=== PATIENT | female | born 1970 | race Two or more races ===

== ENCOUNTER 2021-10-08 08:43 | Inpatient (IN) | payer MEDICARE, OTHER ==
[~2021-10-08] VITALS: Ht 167.6 cm; Wt 74.3 kg
[2021-10-08 09:47] LABS: Basophils # (auto) 0 10 ^3/uL (0-0.2); Basophils % (auto) 0.3 % (0.0-2.0); Eosinophils # (auto) 0.1 10 ^3/uL (0-0.8); Eosinophils % (auto) 1.5 % (0.0-7.0); Hematocrit 23.6 % (36.0-46.0); Hemoglobin 7.5 g/dL (12.2-16.2); Lymphocytes # (auto) 0.4 10 ^3/uL (0.4-5.4); Lymphocytes % (auto) 4.3 % (10.0-50.0); Mean Corpuscular Hemoglobin 27.4 pg (28.0-32.0); Mean Corpuscular Hgb Conc. 31.9 g/dL (32.0-36.0); Mean Corpuscular Volume 85.9 fL (80.0-100.0); Monocytes # (auto) 0.4 10 ^3/uL (0-1.3); Monocytes % (auto) 4.3 % (0.0-12.0); Neutrophils # (auto) 7.7 10 ^3/uL (1.6-8.6); Neutrophils % (auto) 89.6 % (37.0-80.0); Red Blood Cells 2.75 10^6/uL (4.0-5.20); White Blood Cell 8.6 10^3/uL (4.4-10.8)
[2021-10-08 09:51] LABS: Albumin 1.9 g/dL (3.4-5.0); Calcium 7.5 mg/dL (8.5-10.1); Potassium 3.6 mmol/L (3.5-5.1)
[2021-10-08 09:57] LABS: BUN/Creatinine Ratio 14.8; Bilirubin, Total 0.2 mg/dL (0.2-1.0); Total Protein 5.5 g/dL (6.4-8.2)
[2021-10-08] MEDS ORDERED: SODIUM CHLORIDE 0.9% 1,000 ML IV ONE ×2 (10:00)
[2021-10-08] MEDS ORDERED: ALBUMIN 25% 100 ML IV ONE (12:30)
[2021-10-08] MEDS ORDERED: NITROGLYCERIN 0.4 MG SL TAB SL PRN ×2 (12:30→15:15)
[2021-10-08] MEDS ORDERED: ENOXAPARIN SOD 80 MG/0.8ML SYRINGE SC ONE (12:30)
[2021-10-08] MEDS ORDERED: FUROSEMIDE 40 MG/4 ML VIAL IV ONE (12:30)
[2021-10-08] MEDS ORDERED: MORPHINE SULFATE INJECTION 2 MG/ML SYRG IV PRN ×2 (12:30→15:15)
[2021-10-08 14:06] LABS: Partial Thromboplastin Time 28.2 sec (23.6-33.0)
[2021-10-08] MEDS ORDERED: levoFLOXacin 250MG 50 ML IV SCH (14:45)
[2021-10-08] MEDS ORDERED: levoFLOXacin 250MG 50 ML IV ONE (14:45)
[2021-10-08] MEDS ORDERED: IPRATROPIUM BROM 0.5 MG/2.5ML INH SOL NEB ONE (15:00)
[2021-10-08] MEDS ORDERED: METOPROLOL SUCCINATE XL 50 MG TAB PO ONE (15:00)
[2021-10-08] MEDS ORDERED: PANTOPRAZOLE 40 MG/10 ML VIAL INJ IV ONE (15:00)
[2021-10-08] MEDS ORDERED: ALUM & MAG HYDROX-SIMETH LIQ(MAALOX) 30 ML PO PRN (15:15)
[2021-10-08] MEDS ORDERED: METOCLOPRAMIDE HCL 5MG/ml INJ 2ml VIAL IV PRN (15:15)
[2021-10-08] MEDS ORDERED: HYDROcodone-ACET 5/325MG TAB PO PRN (15:15)
[2021-10-08] MEDS ORDERED: TEMAZEPAM 15 MG CAP PO PRN (15:15)
[2021-10-08] MEDS ORDERED: ACETAMINOPHEN 325 MG TAB PO PRN (15:15)
[2021-10-08] MEDS ORDERED: DOCUSATE SOD 100 MG CAP PO PRN (15:15)
[2021-10-08 15:36] LABS: % Iron Saturation 6.4 % (15-50)
[2021-10-08 15:41] LABS: Magnesium 2.5 mg/dL (1.6-2.6); Phosphorus 7.9 mg/dL (2.5-4.90)
[2021-10-08] MEDS ORDERED: NALOXONE HCL 1MG/ML 2ML SYRINGE ONE (16:10)
[2021-10-08] MEDS ORDERED: NOREPINEPHRINE 8 MG/250ML KIT 250 ML IV ONE (16:12)
[2021-10-08] MEDS ORDERED: ETOMIDATE (2MG/ML) 20ML VIAL IV ONE ×2 (16:12→17:00)
[2021-10-08] MEDS ORDERED: SUCCINYLCHOLINE CHLORIDE 20 MG/ML 10ML VIAL IV ONE ×2 (16:12→17:00)
[2021-10-08] MEDS ORDERED: MIDAZOLAM DRIP 50 mg/50mL 50 ML IV ONE (16:16)
[2021-10-08] MEDS: MIDAZOLAM DRIP 50 mg/50mL 50 ML IV SCH ×3 (16:30→17:26)
[2021-10-08] MEDS ORDERED: NALOXONE HCL 1MG/ML 2ML SYRINGE IV ONE (17:00)
[2021-10-08] MEDS ORDERED: PROPOFOL 100 ML IV ONE (17:09)
[2021-10-08] MEDS ORDERED: PROPOFOL 10 MG/ML 20 ML IV ONE (17:15)
[2021-10-08] MEDS: PROPOFOL 100 ML IV SCH ×2 (17:23→17:24)
[2021-10-08] MEDS: ACCU-CHEK COMFORT CURVE STRIP VI SCH ×2 (17:27→22:41)
[2021-10-08 17:30] LABS: Cholesterol 97 mg/dL (< 200)
[2021-10-08 17:33] LABS: HDL Cholesterol 43 mg/dL (40-59); LDL Cholesterol 33 mg/dL (< 100); Triglycerides 146 mg/dL (< 150)
[2021-10-08] MEDS: metroNIDAZOLE 500MG/100ML 100 ML IV SCH ×2 (17:37→22:44)
[2021-10-08] MEDS: InsuLIN REG 1unit/0.01ml Soln (100units/ml) SC SCH ×2 (18:00→22:00)
[2021-10-08] MEDS ORDERED: fentaNYL Drip 2500mCg/250mlNS 250 ML IV ONE (18:00)
[2021-10-08] MEDS: ALBUMIN 25% 100 ML IV SCH ×2 (18:00→23:00)
[2021-10-08 18:15] VITALS: BP 151/69
[2021-10-08] MEDS: fentaNYL Drip 2500mCg/250mlNS 250 ML IV SCH (18:26)
[2021-10-08] MEDS ORDERED: DOPamine 1600MCG/ML D5W 250 ML IV ONE (18:29)
[2021-10-08] MEDS: DOPamine 1600MCG/ML D5W 250 ML IV SCH (18:33)
[2021-10-08] MEDS: IPRATROPIUM BROM 0.5 MG/2.5ML INH SOL NEB SCH ×2 (19:22→22:00)
[2021-10-08] MEDS: BUMETANIDE 2.5mg/10ml (0.25 mg/ml) INJ IV SCH (21:53)
[2021-10-08 22:18] VITALS: BP 153/73
[2021-10-08] MEDS: hydrALAZINE HCL 10 MG TAB PO SCH (22:56)
[2021-10-08] MEDS: ATORVASTATIN 20 MG TAB PO SCH (22:58)
[2021-10-08] MEDS: ISOSORBIDE MONONITRATE 20 MG TAB PO SCH (23:00)
[2021-10-09] VITALS (12 sets, daily range): BP systolic 125–165; BP diastolic 67–84
[2021-10-09] MEDS: IPRATROPIUM BROM 0.5 MG/2.5ML INH SOL NEB SCH ×7 (02:24→21:48)
[2021-10-09] MEDS: BUMETANIDE 2.5mg/10ml (0.25 mg/ml) INJ IV SCH (06:00)
[2021-10-09] MEDS ORDERED: HEPARIN SODIUM (PORCINE) 5000 UNITS/ML 1ML VIAL IV ONE (06:00)
[2021-10-09] MEDS: metroNIDAZOLE 500MG/100ML 100 ML IV SCH ×3 (06:00→16:00)
[2021-10-09] MEDS: hydrALAZINE HCL 10 MG TAB PO SCH ×3 (06:00→22:00)
[2021-10-09] MEDS: InsuLIN REG 1unit/0.01ml Soln (100units/ml) SC SCH ×4 (07:00→22:00)
[2021-10-09] MEDS: ACCU-CHEK COMFORT CURVE STRIP VI SCH ×4 (07:00→22:21)
[2021-10-09] MEDS: ALBUMIN 25% 100 ML IV SCH (07:00)
[2021-10-09 07:04] LABS: Basophils # (auto) 0 10 ^3/uL (0-0.2); Eosinophils # (auto) 0.2 10 ^3/uL (0-0.8); Hematocrit 19.5 % (36.0-46.0); Lymphocytes # (auto) 1.2 10 ^3/uL (0.4-5.4); Mean Corpuscular Hemoglobin 27.5 pg (28.0-32.0); Monocytes # (auto) 0.5 10 ^3/uL (0-1.3)
[2021-10-09 07:06] LABS: Basophils % (auto) 0.4 % (0.0-2.0); Lymphocytes % (auto) 16.3 % (10.0-50.0); Mean Corpuscular Hgb Conc. 32.8 g/dL (32.0-36.0); Mean Corpuscular Volume 83.7 fL (80.0-100.0); Monocytes % (auto) 6.5 % (0.0-12.0); Neutrophils # (auto) 5.5 10 ^3/uL (1.6-8.6); Neutrophils % (auto) 73.8 % (37.0-80.0); Red Blood Cells 2.33 10^6/uL (4.0-5.20); Red Cell Distribution Width 16.4 % (11.8-14.3); White Blood Cell 7.5 10^3/uL (4.4-10.8)
[2021-10-09 07:15] LABS: Albumin 2.4 g/dL (3.4-5.0); Calcium 7.4 mg/dL (8.5-10.1)
[2021-10-09 07:16] LABS: Hemoglobin 6.4 g/dL (12.2-16.2)
[2021-10-09 07:21] LABS: Bilirubin, Total 0.3 mg/dL (0.2-1.0); Total Protein 5.3 g/dL (6.4-8.2)
[2021-10-09 07:46] LABS: INR 1.04 (0.9-1.15); Partial Thromboplastin Time 32.8 sec (23.6-33.0)
[2021-10-09 07:49] LABS: Potassium 2.7 mmol/L (3.5-5.1)
[2021-10-09] MEDS ORDERED: SUCRALFATE 1 GM/10 ML ORAL SUSP PO ONE (09:45)
[2021-10-09] MEDS ORDERED: ACETAMINOPHEN 325 MG TAB PO ONE (09:45)
[2021-10-09] MEDS ORDERED: PANTOPRAZOLE 40 MG/10 ML VIAL INJ IV ONE (09:45)
[2021-10-09] MEDS ORDERED: ENOXAPARIN SOD 30 MG/0.3 ML SYRINGE SC SCH (10:00)
[2021-10-09] MEDS: ISOSORBIDE MONONITRATE 20 MG TAB PO SCH ×2 (10:00→22:00)
[2021-10-09] MEDS: HEPARIN DRIP/D5W 100UNITS/ML 250 ML IV SCH (10:00)
[2021-10-09] MEDS ORDERED: PANTOPRAZOLE 40 MG/10 ML VIAL INJ IV SCH (10:00)
[2021-10-09] MEDS: METOPROLOL SUCCINATE XL 50 MG TAB PO SCH (10:30)
[2021-10-09] MEDS ORDERED: IPRATROPIUM BROM 0.5 MG/2.5ML INH SOL ONE (11:09)
[2021-10-09 11:20] LABS: INR 1.05 (0.9-1.15)
[2021-10-09] MEDS: SUCRALFATE 1 GM/10 ML ORAL SUSP PO SCH ×3 (11:30→22:36)
[2021-10-09] MEDS ORDERED: CALCITRIOL 1 MCG/ML AMPULE IV ONE (12:45)
[2021-10-09] MEDS ORDERED: POTASSIUM CHLORIDE 80 MEQ, LIDOCAINE 1% (LOCAL ANESTH.) 6 ML in SODIUM CHL 0.9% 500 ML IV ONE (12:45)
[2021-10-09] MEDS: D5W/SOD CHLO 0.9% 1,000 ML IV SCH (13:00)
[2021-10-09 13:08] LABS: Folate (Folic Acid) 3.42 ng/mL (5.38-24)
[2021-10-09] MEDS ORDERED: POTASSIUM CHLORIDE 40 MEQ, LIDOCAINE 1% (LOCAL ANESTH.) 4 ML in SODIUM CHL 0.9% 250 ML IV ONE (16:45)
[2021-10-09] MEDS: fentaNYL Drip 2500mCg/250mlNS 250 ML IV SCH (18:07)
[2021-10-09] MEDS: DOPamine 1600MCG/ML D5W 250 ML IV SCH (18:30)
[2021-10-09 18:53] LABS: BUN/Creatinine Ratio 14.6; Calcium 7.3 mg/dL (8.5-10.1); Potassium 3.2 mmol/L (3.5-5.1)
[2021-10-09] MEDS: hydrALAZINE HCL 20 MG/ML VL IV PRN (19:14)
[2021-10-09] MEDS: ATORVASTATIN 20 MG TAB PO SCH (22:36)
[2021-10-09] MEDS: PANTOPRAZOLE 40 MG/10 ML VIAL INJ IV SCH (22:37)
[2021-10-09 23:37] LABS: Basophils # (auto) 0 10 ^3/uL (0-0.2); Hemoglobin 7.8 g/dL (12.2-16.2); Lymphocytes # (auto) 0.9 10 ^3/uL (0.4-5.4); Monocytes # (auto) 0.5 10 ^3/uL (0-1.3); Neutrophils # (auto) 5.3 10 ^3/uL (1.6-8.6)
[2021-10-09 23:39] LABS: Basophils % (auto) 0.7 % (0.0-2.0); Eosinophils # (auto) 0.2 10 ^3/uL (0-0.8); Eosinophils % (auto) 3.1 % (0.0-7.0); Mean Corpuscular Hemoglobin 27.9 pg (28.0-32.0); Mean Corpuscular Hgb Conc. 32.5 g/dL (32.0-36.0); Monocytes % (auto) 7.3 % (0.0-12.0); Neutrophils % (auto) 75.9 % (37.0-80.0); Red Blood Cells 2.79 10^6/uL (4.0-5.20); Red Cell Distribution Width 16.1 % (11.8-14.3)
[2021-10-10] MEDS: DOPamine 1600MCG/ML D5W 250 ML IV SCH ×2 (00:07→21:24)
[2021-10-10 01:41] VITALS: BP 96/52
[2021-10-10] MEDS: MIDAZOLAM DRIP 50 mg/50mL 50 ML IV SCH ×2 (01:45→21:35)
[2021-10-10] MEDS: IPRATROPIUM BROM 0.5 MG/2.5ML INH SOL NEB SCH ×5 (01:50→22:00)
[2021-10-10 04:35] LABS: Potassium 4.6 mmol/L (3.5-5.1)
[2021-10-10 04:49] LABS: Albumin 2.8 g/dL (3.4-5.0); BUN/Creatinine Ratio 15.9; Bilirubin, Total 0.9 mg/dL (0.2-1.0); Calcium 7.6 mg/dL (8.5-10.1); Magnesium 3.4 mg/dL (1.6-2.6); Phosphorus 6.6 mg/dL (2.5-4.90); Total Protein 6.1 g/dL (6.4-8.2)
[2021-10-10] MEDS: hydrALAZINE HCL 10 MG TAB PO SCH ×3 (06:00→22:23)
[2021-10-10] MEDS: metroNIDAZOLE 500MG/100ML 100 ML IV SCH ×3 (06:08→22:23)
[2021-10-10 06:38] VITALS: BP 138/76
[2021-10-10] MEDS ORDERED: methylPREDNISolone SOD SUCC 125 MG/2 ML VL IV ONE (06:45)
[2021-10-10] MEDS: InsuLIN REG 1unit/0.01ml Soln (100units/ml) SC SCH ×4 (07:00→22:24)
[2021-10-10] MEDS: SUCRALFATE 1 GM/10 ML ORAL SUSP PO SCH ×5 (08:00→22:40)
[2021-10-10] MEDS: ACCU-CHEK COMFORT CURVE STRIP VI SCH ×4 (08:30→22:24)
[2021-10-10 08:38] LABS: Basophils # (auto) 0 10 ^3/uL (0-0.2); Basophils % (auto) 0.4 % (0.0-2.0); Eosinophils # (auto) 0.3 10 ^3/uL (0-0.8); Eosinophils % (auto) 3.7 % (0.0-7.0); Hematocrit 29.8 % (36.0-46.0); Hemoglobin 9.7 g/dL (12.2-16.2); Lymphocytes # (auto) 0.8 10 ^3/uL (0.4-5.4); Mean Corpuscular Hemoglobin 27.8 pg (28.0-32.0); Mean Corpuscular Hgb Conc. 32.7 g/dL (32.0-36.0); Mean Corpuscular Volume 84.9 fL (80.0-100.0); Monocytes # (auto) 0.6 10 ^3/uL (0-1.3); Monocytes % (auto) 6.9 % (0.0-12.0); Red Blood Cells 3.51 10^6/uL (4.0-5.20); Red Cell Distribution Width 15.8 % (11.8-14.3); White Blood Cell 8.7 10^3/uL (4.4-10.8)
[2021-10-10] MEDS: DEXTROSE (50%) 50ML SYRG IV PRN ×2 (08:42→08:45)
[2021-10-10] MEDS: HEPARIN DRIP/D5W 100UNITS/ML 250 ML IV SCH (09:00)
[2021-10-10 09:21] LABS: INR 1.1 (0.9-1.15); Partial Thromboplastin Time 32.5 sec (23.6-33.0)
[2021-10-10] MEDS: METOPROLOL SUCCINATE XL 50 MG TAB PO SCH (10:00)
[2021-10-10] MEDS: ISOSORBIDE MONONITRATE 20 MG TAB PO SCH ×2 (10:00→22:23)
[2021-10-10] MEDS: PANTOPRAZOLE 40 MG/10 ML VIAL INJ IV SCH ×2 (10:00→22:23)
[2021-10-10] MEDS: D5W/SOD CHLO 0.9% 1,000 ML IV SCH ×2 (10:05→22:35)
[2021-10-10 10:24] VITALS: BP 147/78
[2021-10-10] MEDS ORDERED: FUROSEMIDE 100 MG/10ML VIAL IV ONE (13:00)
[2021-10-10] MEDS ORDERED: BUMETANIDE 2.5mg/10ml (0.25 mg/ml) INJ IV ONE (15:15)
[2021-10-10] MEDS ORDERED: FOLIC ACID 1 MG in D5W 5% 50 ML INJ ONE (15:15)
[2021-10-10 15:18] VITALS: BP 151/82
[2021-10-10] MEDS ORDERED: levoFLOXacin 250MG 50 ML IV SCH (15:30)
[2021-10-10] MEDS ORDERED: FOLIC ACID 1 MG TAB PO ONE (16:45)
[2021-10-10] MEDS: fentaNYL Drip 2500mCg/250mlNS 250 ML IV SCH (18:30)
[2021-10-10] MEDS: PROPOFOL 100 ML IV SCH (19:10)
[2021-10-10 19:21] VITALS: BP 128/62
[2021-10-10] MEDS: BUMETANIDE INJECTION 12.5 MG in GIVE UN-DILUTED 0 ML IV SCH (21:34)
[2021-10-10 22:00] VITALS: BP 110/59
[2021-10-10] MEDS: ATORVASTATIN 20 MG TAB PO SCH ×2 (22:23→22:40)
[2021-10-11] MEDS: fentaNYL Drip 2500mCg/250mlNS 250 ML IV SCH (00:50)
[2021-10-11] MEDS: MIDAZOLAM DRIP 50 mg/50mL 50 ML IV SCH ×2 (01:16→06:00)
[2021-10-11 02:11] VITALS: BP 105/53
[2021-10-11] MEDS: IPRATROPIUM BROM 0.5 MG/2.5ML INH SOL NEB SCH ×4 (02:11→14:00)
[2021-10-11 04:14] LABS: Basophils # (auto) 0 10 ^3/uL (0-0.2); Basophils % (auto) 0.1 % (0.0-2.0); Eosinophils # (auto) 0 10 ^3/uL (0-0.8); Hematocrit 31.2 % (36.0-46.0); Lymphocytes # (auto) 0.2 10 ^3/uL (0.4-5.4); Lymphocytes % (auto) 4.3 % (10.0-50.0); Mean Corpuscular Hemoglobin 27.4 pg (28.0-32.0); Mean Corpuscular Hgb Conc. 32.1 g/dL (32.0-36.0); Mean Corpuscular Volume 85.3 fL (80.0-100.0); Monocytes # (auto) 0 10 ^3/uL (0-1.3); Monocytes % (auto) 0.8 % (0.0-12.0); Neutrophils # (auto) 5.5 10 ^3/uL (1.6-8.6); Neutrophils % (auto) 94.8 % (37.0-80.0); Red Blood Cells 3.65 10^6/uL (4.0-5.20); Red Cell Distribution Width 16.7 % (11.8-14.3); White Blood Cell 5.8 10^3/uL (4.4-10.8)
[2021-10-11 04:35] LABS: Urine Bacteria MANY /hpf (None Seen); Urine Blood TRACE /uL (Negative); Urine Hyaline Cast MOD /lpf (0 - 2); Urine Specific Gravity 1.009 (1.001-1.035); Urine WBC 48 /hpf (0 - 5); Urine WBC Clumps PRESENT /hpf (None Seen)
[2021-10-11 04:42] LABS: Protein, Urine 102.6 mg/dL (0.0-11.9)
[2021-10-11 04:47] LABS: INR 1.19 (0.9-1.15); Partial Thromboplastin Time 34.3 sec (23.6-33.0)
[2021-10-11 05:05] LABS: Albumin 2.2 g/dL (3.4-5.0); Calcium 7.5 mg/dL (8.5-10.1); Magnesium 2.9 mg/dL (1.6-2.6); Potassium 3.8 mmol/L (3.5-5.1)
[2021-10-11 05:17] LABS: BUN/Creatinine Ratio 14.9; Bilirubin, Total 0.5 mg/dL (0.2-1.0); Phosphorus 7.6 mg/dL (2.5-4.90)
[2021-10-11] MEDS ORDERED: BUMETANIDE 2.5mg/10ml (0.25 mg/ml) INJ IV SCH (06:00)
[2021-10-11] MEDS: hydrALAZINE HCL 10 MG TAB PO SCH ×3 (06:00→22:46)
[2021-10-11] MEDS: metroNIDAZOLE 500MG/100ML 100 ML IV SCH ×3 (06:14→22:45)
[2021-10-11 06:50] VITALS: BP 121/66
[2021-10-11] MEDS: ACCU-CHEK COMFORT CURVE STRIP VI SCH ×4 (07:07→22:10)
[2021-10-11] MEDS: SUCRALFATE 1 GM/10 ML ORAL SUSP PO SCH ×4 (07:07→22:46)
[2021-10-11] MEDS: InsuLIN REG 1unit/0.01ml Soln (100units/ml) SC SCH ×4 (07:24→22:00)
[2021-10-11] MEDS: CHOLECALCIFEROL (VITD3) 2,000 UNIT CAP/TAB PO SCH (10:00)
[2021-10-11] MEDS: PANTOPRAZOLE 40 MG/10 ML VIAL INJ IV SCH ×2 (10:00→22:45)
[2021-10-11] MEDS: CYANOCOBALAMIN 500 MCG TAB PO SCH (10:00)
[2021-10-11] MEDS: ISOSORBIDE MONONITRATE 20 MG TAB PO SCH ×2 (10:00→22:00)
[2021-10-11] MEDS: METOPROLOL SUCCINATE XL 50 MG TAB PO SCH (10:00)
[2021-10-11] MEDS: FOLIC ACID 1 MG TAB PO SCH (10:00)
[2021-10-11] MEDS: CALCITRIOL 1 MCG/ML AMPULE IV SCH (10:00)
[2021-10-11 10:50] VITALS: BP 129/66
[2021-10-11 15:50] VITALS: BP 151/74
[2021-10-11] MEDS: PROPOFOL 100 ML IV SCH (17:15)
[2021-10-11 18:29] VITALS: BP 152/72
[2021-10-11 21:53] VITALS: BP 139/71
[2021-10-11] MEDS: ATORVASTATIN 20 MG TAB PO SCH (22:47)
[2021-10-12] MEDS: D5W/SOD CHLO 0.9% 1,000 ML IV SCH ×3 (00:13→13:30)
[2021-10-12] MEDS: IPRATROPIUM BROM 0.5 MG/2.5ML INH SOL NEB SCH ×8 (00:54→22:59)
[2021-10-12 01:54] VITALS: BP 154/79
[2021-10-12 05:15] VITALS: BP 161/82
[2021-10-12 05:51] LABS: Basophils # (auto) 0 10 ^3/uL (0-0.2); Basophils % (auto) 0.1 % (0.0-2.0); Eosinophils # (auto) 0 10 ^3/uL (0-0.8); Hematocrit 31.3 % (36.0-46.0); Hemoglobin 10.2 g/dL (12.2-16.2); Lymphocytes # (auto) 0.5 10 ^3/uL (0.4-5.4); Lymphocytes % (auto) 5.2 % (10.0-50.0); Mean Corpuscular Hemoglobin 27.7 pg (28.0-32.0); Mean Corpuscular Hgb Conc. 32.6 g/dL (32.0-36.0); Mean Corpuscular Volume 84.9 fL (80.0-100.0); Monocytes # (auto) 0.3 10 ^3/uL (0-1.3); Monocytes % (auto) 3.3 % (0.0-12.0); Neutrophils # (auto) 8.3 10 ^3/uL (1.6-8.6); Neutrophils % (auto) 91.4 % (37.0-80.0); Red Blood Cells 3.69 10^6/uL (4.0-5.20); White Blood Cell 9.1 10^3/uL (4.4-10.8)
[2021-10-12 06:01] LABS: Albumin 2.3 g/dL (3.4-5.0); Calcium 7.6 mg/dL (8.5-10.1); INR 1.16 (0.9-1.15); Magnesium 3.2 mg/dL (1.6-2.6); Partial Thromboplastin Time 30.8 sec (23.6-33.0); Potassium 4.1 mmol/L (3.5-5.1)
[2021-10-12 06:04] LABS: BUN/Creatinine Ratio 16.4; Bilirubin, Total 0.5 mg/dL (0.2-1.0); Phosphorus 7.4 mg/dL (2.5-4.90); Total Protein 6.1 g/dL (6.4-8.2)
[2021-10-12] MEDS: metroNIDAZOLE 500MG/100ML 100 ML IV SCH (06:11)
[2021-10-12] MEDS: ACCU-CHEK COMFORT CURVE STRIP VI SCH ×4 (07:00→23:05)
[2021-10-12] MEDS: InsuLIN REG 1unit/0.01ml Soln (100units/ml) SC SCH ×4 (07:05→23:06)
[2021-10-12] MEDS: hydrALAZINE HCL 10 MG TAB PO SCH ×3 (07:12→23:04)
[2021-10-12] MEDS: SUCRALFATE 1 GM/10 ML ORAL SUSP PO SCH ×4 (07:12→23:04)
[2021-10-12] MEDS: BUMETANIDE INJECTION 12.5 MG in GIVE UN-DILUTED 0 ML IV SCH (08:24)
[2021-10-12 08:50] VITALS: BP 156/83
[2021-10-12] MEDS: METOPROLOL SUCCINATE XL 50 MG TAB PO SCH (10:00)
[2021-10-12] MEDS: ISOSORBIDE MONONITRATE 20 MG TAB PO SCH (10:00)
[2021-10-12] MEDS: FOLIC ACID 1 MG TAB PO SCH (10:17)
[2021-10-12] MEDS: PANTOPRAZOLE 40 MG/10 ML VIAL INJ IV SCH ×2 (10:17→23:03)
[2021-10-12] MEDS: CHOLECALCIFEROL (VITD3) 2,000 UNIT CAP/TAB PO SCH (10:17)
[2021-10-12] MEDS: CYANOCOBALAMIN 500 MCG TAB PO SCH (10:17)
[2021-10-12] MEDS ORDERED: cefTRIAXone 1GM/50ML D5W 50 ML IV ONE (12:15)
[2021-10-12] MEDS: hydrALAZINE HCL 20 MG/ML VL IV PRN (12:23)
[2021-10-12 13:15] VITALS: BP 128/70
[2021-10-12] MEDS: ERGOCALCIFEROL 50,000 UNIT(1.25MG) CAP PO SCH (14:06)
[2021-10-12] MEDS: PROPOFOL 100 ML IV SCH (17:15)
[2021-10-12] MEDS: MIDAZOLAM DRIP 50 mg/50mL 50 ML IV SCH (17:38)
[2021-10-12 17:55] VITALS: BP 149/82
[2021-10-12] MEDS: FUROSEMIDE 20 MG/2 ML VIAL IV SCH (18:13)
[2021-10-12] MEDS: DOPamine 1600MCG/ML D5W 250 ML IV SCH (18:54)
[2021-10-12] MEDS: fentaNYL Drip 2500mCg/250mlNS 250 ML IV SCH (18:58)
[2021-10-12 22:10] VITALS: BP 141/84
[2021-10-12] MEDS: ATORVASTATIN 20 MG TAB PO SCH (23:05)
[2021-10-12] MEDS: ISOSORBIDE DINITRATE 10 MG TAB PO SCH (23:05)
[2021-10-13] MEDS: IPRATROPIUM BROM 0.5 MG/2.5ML INH SOL NEB SCH ×6 (02:13→18:53)
[2021-10-13 02:15] VITALS: BP 144/83
[2021-10-13 06:00] VITALS: BP 128/79
[2021-10-13] MEDS: FUROSEMIDE 20 MG/2 ML VIAL IV SCH ×2 (06:18→18:00)
[2021-10-13] MEDS: hydrALAZINE HCL 10 MG TAB PO SCH ×3 (06:19→22:54)
[2021-10-13] MEDS: ACCU-CHEK COMFORT CURVE STRIP VI SCH ×4 (06:53→22:21)
[2021-10-13] MEDS: SUCRALFATE 1 GM/10 ML ORAL SUSP PO SCH ×4 (06:53→22:54)
[2021-10-13] MEDS: InsuLIN REG 1unit/0.01ml Soln (100units/ml) SC SCH ×5 (06:55→22:21)
[2021-10-13 07:13] LABS: Basophils # (auto) 0.1 10 ^3/uL (0-0.2); Basophils % (auto) 0.7 % (0.0-2.0); Eosinophils # (auto) 0.1 10 ^3/uL (0-0.8); Eosinophils % (auto) 1.5 % (0.0-7.0); Hematocrit 32.3 % (36.0-46.0); Hemoglobin 10.6 g/dL (12.2-16.2); Lymphocytes # (auto) 0.9 10 ^3/uL (0.4-5.4); Lymphocytes % (auto) 10.4 % (10.0-50.0); Mean Corpuscular Hemoglobin 27.7 pg (28.0-32.0); Mean Corpuscular Hgb Conc. 32.8 g/dL (32.0-36.0); Mean Corpuscular Volume 84.5 fL (80.0-100.0); Monocytes # (auto) 0.4 10 ^3/uL (0-1.3); Monocytes % (auto) 4.9 % (0.0-12.0); Neutrophils # (auto) 7.5 10 ^3/uL (1.6-8.6); Neutrophils % (auto) 82.5 % (37.0-80.0); Red Blood Cells 3.82 10^6/uL (4.0-5.20); Red Cell Distribution Width 15.9 % (11.8-14.3)
[2021-10-13 07:43] LABS: BUN/Creatinine Ratio 17.2; Calcium 7.7 mg/dL (8.5-10.1); Magnesium 2.9 mg/dL (1.6-2.6); Phosphorus 7.1 mg/dL (2.5-4.90); Potassium 3.7 mmol/L (3.5-5.1)
[2021-10-13] MEDS: cefTRIAXone 1GM/50ML D5W 50 ML IV SCH (09:12)
[2021-10-13 10:00] VITALS: BP 138/82
[2021-10-13] MEDS: CHOLECALCIFEROL (VITD3) 2,000 UNIT CAP/TAB PO SCH (10:00)
[2021-10-13] MEDS: CYANOCOBALAMIN 500 MCG TAB PO SCH (10:00)
[2021-10-13] MEDS: PANTOPRAZOLE 40 MG/10 ML VIAL INJ IV SCH ×2 (10:00→22:54)
[2021-10-13] MEDS: ISOSORBIDE DINITRATE 10 MG TAB PO SCH ×2 (10:00→22:54)
[2021-10-13] MEDS: CALCITRIOL 1 MCG/ML AMPULE IV SCH (10:00)
[2021-10-13] MEDS: FOLIC ACID 1 MG TAB PO SCH (10:00)
[2021-10-13] MEDS: METOPROLOL SUCCINATE XL 50 MG TAB PO SCH (10:00)
[2021-10-13] MEDS: D5W/SOD CHLO 0.9% 1,000 ML IV SCH ×7 (13:27→18:15)
[2021-10-13 14:10] VITALS: BP 135/81
[2021-10-13] MEDS: MIDAZOLAM DRIP 50 mg/50mL 50 ML IV SCH ×3 (16:27→19:07)
[2021-10-13] MEDS: PROPOFOL 100 ML IV SCH (17:15)
[2021-10-13 18:15] VITALS: BP 135/80
[2021-10-13] MEDS: fentaNYL Drip 2500mCg/250mlNS 250 ML IV SCH (18:30)
[2021-10-13] MEDS: DOPamine 1600MCG/ML D5W 250 ML IV SCH (18:30)
[2021-10-13] MEDS ORDERED: ISOSORBIDE DINITRATE 10 MG TAB ONE (22:38)
[2021-10-13] MEDS ORDERED: hydrALAZINE HCL 10 MG TAB ONE (22:38)
[2021-10-13] MEDS ORDERED: PANTOPRAZOLE 40 MG/10 ML VIAL INJ IV ONE (22:38)
[2021-10-13] MEDS ORDERED: ATORVASTATIN 20 MG TAB ONE (22:38)
[2021-10-13] MEDS ORDERED: SUCRALFATE 1 GM/10 ML ORAL SUSP ONE (22:38)
[2021-10-13 22:40] VITALS: BP 146/81
[2021-10-13] MEDS: ATORVASTATIN 20 MG TAB PO SCH (22:55)
[2021-10-14] VITALS (8 sets, daily range): BP systolic 108–143; BP diastolic 60–83
[2021-10-14] MEDS ORDERED: MIDAZOLAM DRIP 50 mg/50mL 50 ML IV ONE (02:01)
[2021-10-14] MEDS: IPRATROPIUM BROM 0.5 MG/2.5ML INH SOL NEB SCH ×7 (03:08→22:23)
[2021-10-14] MEDS: MIDAZOLAM DRIP 50 mg/50mL 50 ML IV SCH (04:14)
[2021-10-14] MEDS ORDERED: FUROSEMIDE INJECTION 10 ML ONE (05:00)
[2021-10-14] MEDS ORDERED: hydrALAZINE HCL 10 MG TAB ONE (05:00)
[2021-10-14] MEDS ORDERED: DOPamine 1600MCG/ML D5W 250 ML IV ONE (05:00)
[2021-10-14] MEDS: hydrALAZINE HCL 10 MG TAB PO SCH ×3 (05:15→21:53)
[2021-10-14] MEDS: FUROSEMIDE 20 MG/2 ML VIAL IV SCH ×3 (05:15→18:46)
[2021-10-14] MEDS: ACCU-CHEK COMFORT CURVE STRIP VI SCH ×4 (05:16→21:54)
[2021-10-14] MEDS: SUCRALFATE 1 GM/10 ML ORAL SUSP PO SCH ×4 (05:16→21:53)
[2021-10-14 08:13] LABS: Albumin 2.2 g/dL (3.4-5.0); Calcium 7.3 mg/dL (8.5-10.1); Potassium 3.4 mmol/L (3.5-5.1)
[2021-10-14 08:18] LABS: BUN/Creatinine Ratio 17.6; Bilirubin, Total 0.4 mg/dL (0.2-1.0); Total Protein 5.3 g/dL (6.4-8.2)
[2021-10-14] MEDS: cefTRIAXone 1GM/50ML D5W 50 ML IV SCH (08:32)
[2021-10-14] MEDS ORDERED: SODIUM BICARBONATE 8.4 % INJ 50ML VIAL IV ONE (09:15)
[2021-10-14] MEDS ORDERED: IPRATROPIUM BROM 0.5 MG/2.5ML INH SOL ONE ×2 (09:48→22:19)
[2021-10-14] MEDS: FOLIC ACID 1 MG TAB PO SCH (10:00)
[2021-10-14] MEDS: CHOLECALCIFEROL (VITD3) 2,000 UNIT CAP/TAB PO SCH (10:00)
[2021-10-14] MEDS: ISOSORBIDE DINITRATE 10 MG TAB PO SCH ×2 (10:00→21:54)
[2021-10-14] MEDS: METOPROLOL SUCCINATE XL 50 MG TAB PO SCH (10:00)
[2021-10-14] MEDS: CYANOCOBALAMIN 500 MCG TAB PO SCH (10:00)
[2021-10-14] MEDS: PANTOPRAZOLE 40 MG/10 ML VIAL INJ IV SCH ×2 (10:00→21:53)
[2021-10-14] MEDS: POTASSIUM CHL 20MEQ/50ML 50 ML IV SCH ×2 (11:00→13:30)
[2021-10-14] MEDS: SODIUM BICARB 50ML SYR 50 ML in D5W/SOD CHL 0.45% 1,000 ML IV SCH (11:15)
[2021-10-14] MEDS: InsuLIN REG 1unit/0.01ml Soln (100units/ml) SC SCH ×3 (12:00→17:30)
[2021-10-14] MEDS: PROPOFOL 100 ML IV SCH (17:58)
[2021-10-14] MEDS: DOPamine 1600MCG/ML D5W 250 ML IV SCH (18:16)
[2021-10-14] MEDS: fentaNYL Drip 2500mCg/250mlNS 250 ML IV SCH (18:30)
[2021-10-14] MEDS: ATORVASTATIN 20 MG TAB PO SCH (21:54)
[2021-10-15] MEDS: FUROSEMIDE 20 MG/2 ML VIAL IV SCH ×4 (00:57→19:20)
[2021-10-15 01:23] VITALS: BP 123/72
[2021-10-15] MEDS: IPRATROPIUM BROM 0.5 MG/2.5ML INH SOL NEB SCH ×6 (01:23→22:47)
[2021-10-15] MEDS: SODIUM BICARB 50ML SYR 50 ML in D5W/SOD CHL 0.45% 1,000 ML IV SCH ×2 (03:36→23:34)
[2021-10-15] MEDS ORDERED: FUROSEMIDE 40 MG/4 ML VIAL ONE (05:39)
[2021-10-15] MEDS: hydrALAZINE HCL 10 MG TAB PO SCH ×2 (06:06→14:32)
[2021-10-15] MEDS: SUCRALFATE 1 GM/10 ML ORAL SUSP PO SCH ×3 (06:07→19:03)
[2021-10-15] MEDS: ACCU-CHEK COMFORT CURVE STRIP VI SCH ×4 (06:08→23:40)
[2021-10-15] MEDS: InsuLIN REG 1unit/0.01ml Soln (100units/ml) SC SCH ×4 (06:08→22:00)
[2021-10-15 06:10] LABS: BUN/Creatinine Ratio 16.3; Calcium 7.8 mg/dL (8.5-10.1); Potassium 4.3 mmol/L (3.5-5.1)
[2021-10-15 06:58] VITALS: BP 158/80
[2021-10-15] MEDS: METOPROLOL SUCCINATE XL 50 MG TAB PO SCH (09:44)
[2021-10-15] MEDS: cefTRIAXone 1GM/50ML D5W 50 ML IV SCH (09:45)
[2021-10-15 10:00] VITALS: BP 151/84
[2021-10-15] MEDS: PANTOPRAZOLE 40 MG/10 ML VIAL INJ IV SCH (10:21)
[2021-10-15] MEDS: CALCITRIOL 1 MCG/ML AMPULE IV SCH (10:21)
[2021-10-15] MEDS: ISOSORBIDE DINITRATE 10 MG TAB PO SCH (10:30)
[2021-10-15] MEDS: CYANOCOBALAMIN 500 MCG TAB PO SCH (10:30)
[2021-10-15] MEDS: CHOLECALCIFEROL (VITD3) 2,000 UNIT CAP/TAB PO SCH (10:30)
[2021-10-15] MEDS: FOLIC ACID 1 MG TAB PO SCH (10:30)
[2021-10-15 13:14] LABS: Hepatitis C Antibody Negative (Negative)
[2021-10-15] MEDS ORDERED: IPRATROPIUM BROM 0.5 MG/2.5ML INH SOL ONE (13:42)
[2021-10-15] MEDS: MORPHINE SULFATE INJECTION 2 MG/ML SYRG IV PRN ×2 (14:08→19:05)
[2021-10-15] MEDS: MIDAZOLAM DRIP 50 mg/50mL 50 ML IV SCH (14:56)
[2021-10-15] MEDS: DOPamine 1600MCG/ML D5W 250 ML IV SCH (18:30)
[2021-10-15] MEDS: fentaNYL Drip 2500mCg/250mlNS 250 ML IV SCH (18:30)
[2021-10-15] MEDS: PROPOFOL 100 ML IV SCH (18:36)
[2021-10-16] MEDS: PANTOPRAZOLE 40 MG/10 ML VIAL INJ IV SCH ×3 (00:05→21:41)
[2021-10-16] MEDS: hydrALAZINE HCL 10 MG TAB PO SCH ×4 (00:06→21:48)
[2021-10-16] MEDS: ISOSORBIDE DINITRATE 10 MG TAB PO SCH ×3 (00:07→21:49)
[2021-10-16] MEDS: SUCRALFATE 1 GM/10 ML ORAL SUSP PO SCH ×5 (00:08→21:43)
[2021-10-16] MEDS: FUROSEMIDE 20 MG/2 ML VIAL IV SCH ×4 (00:34→18:02)
[2021-10-16] MEDS: ATORVASTATIN 20 MG TAB PO SCH ×2 (00:34→21:44)
[2021-10-16] MEDS: IPRATROPIUM BROM 0.5 MG/2.5ML INH SOL NEB SCH ×3 (02:00→10:38)
[2021-10-16 06:37] LABS: Basophils # (auto) 0.1 10 ^3/uL (0-0.2); Basophils % (auto) 0.4 % (0.0-2.0); Eosinophils # (auto) 0.3 10 ^3/uL (0-0.8); Eosinophils % (auto) 1.9 % (0.0-7.0); Hematocrit 30.1 % (36.0-46.0); Hemoglobin 9.8 g/dL (12.2-16.2); Lymphocytes # (auto) 0.6 10 ^3/uL (0.4-5.4); Lymphocytes % (auto) 3.6 % (10.0-50.0); Mean Corpuscular Hemoglobin 27.4 pg (28.0-32.0); Mean Corpuscular Hgb Conc. 32.4 g/dL (32.0-36.0); Mean Corpuscular Volume 84.5 fL (80.0-100.0); Monocytes # (auto) 0.4 10 ^3/uL (0-1.3); Monocytes % (auto) 2.6 % (0.0-12.0); Neutrophils # (auto) 15.2 10 ^3/uL (1.6-8.6); Neutrophils % (auto) 91.5 % (37.0-80.0); Red Blood Cells 3.56 10^6/uL (4.0-5.20); Red Cell Distribution Width 15.5 % (11.8-14.3); White Blood Cell 16.6 10^3/uL (4.4-10.8)
[2021-10-16 06:48] LABS: Potassium 3.6 mmol/L (3.5-5.1)
[2021-10-16 06:53] LABS: BUN/Creatinine Ratio 16.2; Calcium 7.5 mg/dL (8.5-10.1)
[2021-10-16 07:00] VITALS: BP 116/62
[2021-10-16] MEDS: ACCU-CHEK COMFORT CURVE STRIP VI SCH ×4 (07:40→21:51)
[2021-10-16] MEDS: InsuLIN REG 1unit/0.01ml Soln (100units/ml) SC SCH ×4 (07:43→22:05)
[2021-10-16 08:16] VITALS: BP 152/84
[2021-10-16] MEDS: cefTRIAXone 1GM/50ML D5W 50 ML IV SCH (08:55)
[2021-10-16] MEDS: FOLIC ACID 1 MG TAB PO SCH (09:55)
[2021-10-16] MEDS: METOPROLOL SUCCINATE XL 50 MG TAB PO SCH (09:55)
[2021-10-16] MEDS: CYANOCOBALAMIN 500 MCG TAB PO SCH (09:56)
[2021-10-16] MEDS: CHOLECALCIFEROL (VITD3) 2,000 UNIT CAP/TAB PO SCH (09:56)
[2021-10-16 12:00] VITALS: BP 139/78
[2021-10-16] MEDS: DOPamine 1600MCG/ML D5W 250 ML IV SCH (14:43)
[2021-10-16] MEDS: SODIUM BICARB 50ML SYR 50 ML in D5W/SOD CHL 0.45% 1,000 ML IV SCH (15:02)
[2021-10-16 17:25] VITALS: BP 124/68
[2021-10-16 22:00] VITALS: BP 160/89
[2021-10-17] VITALS (7 sets, daily range): BP systolic 110–151; BP diastolic 64–93
[2021-10-17] MEDS: FUROSEMIDE 20 MG/2 ML VIAL IV SCH ×3 (00:48→12:39)
[2021-10-17 05:39] LABS: Basophils # (auto) 0 10 ^3/uL (0-0.2); Basophils % (auto) 0.3 % (0.0-2.0); Eosinophils # (auto) 0.4 10 ^3/uL (0-0.8); Eosinophils % (auto) 2.8 % (0.0-7.0); Hematocrit 31.6 % (36.0-46.0); Hemoglobin 10.2 g/dL (12.2-16.2); Lymphocytes # (auto) 0.4 10 ^3/uL (0.4-5.4); Lymphocytes % (auto) 3.1 % (10.0-50.0); Mean Corpuscular Hgb Conc. 32.1 g/dL (32.0-36.0); Monocytes # (auto) 0.3 10 ^3/uL (0-1.3); Monocytes % (auto) 2.1 % (0.0-12.0); Neutrophils # (auto) 12.9 10 ^3/uL (1.6-8.6); Neutrophils % (auto) 91.7 % (37.0-80.0); Red Blood Cells 3.77 10^6/uL (4.0-5.20); Red Cell Distribution Width 15.5 % (11.8-14.3); White Blood Cell 14.1 10^3/uL (4.4-10.8)
[2021-10-17 06:09] LABS: Potassium 3.5 mmol/L (3.5-5.1)
[2021-10-17 06:13] LABS: Calcium 7.5 mg/dL (8.5-10.1)
[2021-10-17] MEDS: hydrALAZINE HCL 10 MG TAB PO SCH ×3 (06:22→21:53)
[2021-10-17] MEDS: SUCRALFATE 1 GM/10 ML ORAL SUSP PO SCH ×4 (06:23→21:53)
[2021-10-17] MEDS: ACCU-CHEK COMFORT CURVE STRIP VI SCH ×4 (06:24→21:56)
[2021-10-17] MEDS: SODIUM BICARB 50ML SYR 50 ML in D5W/SOD CHL 0.45% 1,000 ML IV SCH (06:24)
[2021-10-17] MEDS: InsuLIN REG 1unit/0.01ml Soln (100units/ml) SC SCH ×4 (06:32→21:56)
[2021-10-17] MEDS: cefTRIAXone 1GM/50ML D5W 50 ML IV SCH (08:55)
[2021-10-17] MEDS: ISOSORBIDE DINITRATE 10 MG TAB PO SCH ×2 (10:05→21:54)
[2021-10-17] MEDS: FOLIC ACID 1 MG TAB PO SCH (10:05)
[2021-10-17] MEDS: PANTOPRAZOLE 40 MG/10 ML VIAL INJ IV SCH ×2 (10:05→21:53)
[2021-10-17] MEDS: CALCITRIOL 1 MCG/ML AMPULE IV SCH (10:05)
[2021-10-17] MEDS: METOPROLOL SUCCINATE XL 50 MG TAB PO SCH (10:05)
[2021-10-17] MEDS: CHOLECALCIFEROL (VITD3) 2,000 UNIT CAP/TAB PO SCH (10:06)
[2021-10-17] MEDS: CYANOCOBALAMIN 500 MCG TAB PO SCH (10:06)
[2021-10-17] MEDS: FUROSEMIDE 100 MG/10ML VIAL IV SCH ×2 (15:58→21:53)
[2021-10-17] MEDS: DOPamine 1600MCG/ML D5W 250 ML IV SCH (18:23)
[2021-10-17] MEDS: ATORVASTATIN 20 MG TAB PO SCH (21:54)
[2021-10-18] VITALS (38 sets, daily range): BP systolic 91–167; BP diastolic 57–97
[2021-10-18 06:24] LABS: Calcium 7.5 mg/dL (8.5-10.1); Potassium 3.3 mmol/L (3.5-5.1)
[2021-10-18] MEDS: SUCRALFATE 1 GM/10 ML ORAL SUSP PO SCH ×4 (06:25→22:18)
[2021-10-18 06:26] LABS: BUN/Creatinine Ratio 14.6
[2021-10-18] MEDS: hydrALAZINE HCL 10 MG TAB PO SCH ×4 (06:26→22:00)
[2021-10-18] MEDS: InsuLIN REG 1unit/0.01ml Soln (100units/ml) SC SCH ×4 (06:29→22:17)
[2021-10-18] MEDS: ACCU-CHEK COMFORT CURVE STRIP VI SCH ×4 (06:29→22:12)
[2021-10-18] MEDS ORDERED: POTASSIUM CHL 20 Meq TABLET PO ONE (09:15)
[2021-10-18] MEDS ORDERED: levoFLOXacin 500 MG TAB PO ONE (09:30)
[2021-10-18] MEDS: PANTOPRAZOLE 40 MG/10 ML VIAL INJ IV SCH ×2 (10:51→22:18)
[2021-10-18] MEDS: FUROSEMIDE 100 MG/10ML VIAL IV SCH ×2 (10:51→22:19)
[2021-10-18] MEDS: FOLIC ACID 1 MG TAB PO SCH (10:51)
[2021-10-18] MEDS: ISOSORBIDE DINITRATE 10 MG TAB PO SCH ×2 (10:52→21:55)
[2021-10-18] MEDS: CYANOCOBALAMIN 500 MCG TAB PO SCH (10:53)
[2021-10-18] MEDS: CHOLECALCIFEROL (VITD3) 2,000 UNIT CAP/TAB PO SCH (10:53)
[2021-10-18] MEDS: METOPROLOL SUCCINATE XL 50 MG TAB PO SCH (10:53)
[2021-10-18] MEDS ORDERED: NOREPINEPHRINE 8 MG/250ML KIT 250 ML IV ONE (15:50)
[2021-10-18] MEDS ORDERED: MIDAZOLAM DRIP 50 mg/50mL 0 ML IV ONE (16:04)
[2021-10-18] MEDS ORDERED: MIDAZOLAM DRIP 50 mg/50mL 50 ML IV ONE (16:06)
[2021-10-18] MEDS ORDERED: DOPamine 1600MCG/ML D5W 250 ML IV ONE (16:07)
[2021-10-18] MEDS: NOREPINEPHRINE 8 MG/250ML KIT 250 ML IV SCH (16:15)
[2021-10-18] MEDS ORDERED: fentaNYL Drip 2500mCg/250mlNS 250 ML IV ONE (16:21)
[2021-10-18] MEDS ORDERED: PROPOFOL 100 ML IV ONE (16:32)
[2021-10-18] MEDS: MIDAZOLAM DRIP 50 mg/50mL 50 ML IV SCH ×2 (17:49→21:43)
[2021-10-18] MEDS: DOPamine 1600MCG/ML D5W 250 ML IV SCH (18:43)
[2021-10-18] MEDS: PROPOFOL 100 ML IV SCH ×2 (18:44→20:34)
[2021-10-18] MEDS: ATORVASTATIN 20 MG TAB PO SCH (22:18)
[2021-10-19] VITALS (90 sets, daily range): BP systolic 118–180; BP diastolic 72–101
[2021-10-19] MEDS: MIDAZOLAM DRIP 50 mg/50mL 50 ML IV SCH ×6 (01:28→20:58)
[2021-10-19] MEDS: fentaNYL Drip 2500mCg/250mlNS 250 ML IV SCH ×2 (04:02→16:15)
[2021-10-19 04:21] LABS: Basophils # (auto) 0.1 10 ^3/uL (0-0.2); Basophils % (auto) 0.7 % (0.0-2.0); Eosinophils # (auto) 0.2 10 ^3/uL (0-0.8); Eosinophils % (auto) 1.7 % (0.0-7.0); Hematocrit 29.6 % (36.0-46.0); Hemoglobin 9.7 g/dL (12.2-16.2); Lymphocytes # (auto) 0.9 10 ^3/uL (0.4-5.4); Mean Corpuscular Hemoglobin 27.2 pg (28.0-32.0); Mean Corpuscular Hgb Conc. 32.7 g/dL (32.0-36.0); Mean Corpuscular Volume 83.3 fL (80.0-100.0); Monocytes # (auto) 0.4 10 ^3/uL (0-1.3); Monocytes % (auto) 3.9 % (0.0-12.0); Neutrophils # (auto) 7.6 10 ^3/uL (1.6-8.6); Neutrophils % (auto) 83.7 % (37.0-80.0); Red Blood Cells 3.55 10^6/uL (4.0-5.20); Red Cell Distribution Width 15.5 % (11.8-14.3)
[2021-10-19 04:46] LABS: BUN/Creatinine Ratio 14.2
[2021-10-19] MEDS ORDERED: POTASSIUM CHL 20MEQ/50ML 50 ML IV ONE (06:00)
[2021-10-19] MEDS: SUCRALFATE 1 GM/10 ML ORAL SUSP PO SCH ×4 (06:16→20:55)
[2021-10-19] MEDS: ACCU-CHEK COMFORT CURVE STRIP VI SCH ×4 (06:30→20:56)
[2021-10-19] MEDS: InsuLIN REG 1unit/0.01ml Soln (100units/ml) SC SCH ×4 (06:30→20:56)
[2021-10-19] MEDS: hydrALAZINE HCL 10 MG TAB PO SCH (07:02)
[2021-10-19] MEDS: CALCITRIOL 1 MCG/ML AMPULE IV SCH (10:00)
[2021-10-19] MEDS: FUROSEMIDE 100 MG/10ML VIAL IV SCH (10:00)
[2021-10-19] MEDS: METOPROLOL SUCCINATE XL 50 MG TAB PO SCH (10:00)
[2021-10-19] MEDS: PANTOPRAZOLE 40 MG/10 ML VIAL INJ IV SCH ×2 (10:00→20:55)
[2021-10-19] MEDS: ENOXAPARIN SOD 30 MG/0.3 ML SYRINGE SC SCH (10:00)
[2021-10-19] MEDS: ISOSORBIDE DINITRATE 10 MG TAB PO SCH (10:00)
[2021-10-19] MEDS: FOLIC ACID 1 MG TAB PO SCH (10:01)
[2021-10-19] MEDS: CYANOCOBALAMIN 500 MCG TAB PO SCH (10:01)
[2021-10-19] MEDS: CHOLECALCIFEROL (VITD3) 2,000 UNIT CAP/TAB PO SCH (10:01)
[2021-10-19] MEDS: ERGOCALCIFEROL 50,000 UNIT(1.25MG) CAP PO SCH (13:17)
[2021-10-19] MEDS: DOPamine 1600MCG/ML D5W 250 ML IV SCH (13:48)
[2021-10-19] MEDS: NOREPINEPHRINE 8 MG/250ML KIT 250 ML IV SCH (16:15)
[2021-10-19] MEDS: hydrALAZINE HCL 10 MG TAB PO PRN (18:35)
[2021-10-19 18:45] LABS: Alcohol, Urine < 3.0 mg/dL (0-10); Amphetamine Screen, Urine NEGATIVE (NEGATIVE); Barbiturate Scree,Urine NEGATIVE (NEGATIVE); Benzodiazephine Screen, Urine POSITIVE (NEGATIVE); Cannabinoid Screen, Urine NEGATIVE (NEGATIVE); Cocaine Screen, Urine NEGATIVE (NEGATIVE); Phencyclidine Screen, Urine NEGATIVE (NEGATIVE)
[2021-10-19 18:53] LABS: Opiate Scree,Urine NEGATIVE (NEGATIVE)
[2021-10-19] MEDS: ATORVASTATIN 20 MG TAB PO SCH (20:55)
[2021-10-20] VITALS (79 sets, daily range): BP systolic 75–179; BP diastolic 50–107
[2021-10-20] MEDS: MIDAZOLAM DRIP 50 mg/50mL 50 ML IV SCH ×4 (02:50→23:54)
[2021-10-20] MEDS: fentaNYL Drip 2500mCg/250mlNS 250 ML IV SCH ×2 (04:37→16:05)
[2021-10-20 05:59] LABS: BUN/Creatinine Ratio 13.4; Calcium 7.7 mg/dL (8.5-10.1); Potassium 3.1 mmol/L (3.5-5.1)
[2021-10-20] MEDS: ACCU-CHEK COMFORT CURVE STRIP VI SCH ×4 (06:13→21:48)
[2021-10-20] MEDS: SUCRALFATE 1 GM/10 ML ORAL SUSP PO SCH ×4 (06:15→21:48)
[2021-10-20] MEDS: InsuLIN REG 1unit/0.01ml Soln (100units/ml) SC SCH ×4 (06:18→21:48)
[2021-10-20] MEDS: IPRATROPIUM BROM 0.5 MG/2.5ML INH SOL NEB PRN (06:19)
[2021-10-20] MEDS: POTASSIUM CHL 20MEQ/50ML 50 ML IV SCH ×2 (09:45→11:45)
[2021-10-20] MEDS: CALCIUM ACETATE 667 MG CAP NG SCH ×3 (09:45→21:48)
[2021-10-20] MEDS: FUROSEMIDE 100 MG/10ML VIAL IV SCH (10:00)
[2021-10-20] MEDS: CYANOCOBALAMIN 500 MCG TAB PO SCH (10:00)
[2021-10-20] MEDS: ENOXAPARIN SOD 30 MG/0.3 ML SYRINGE SC SCH (10:00)
[2021-10-20] MEDS: FOLIC ACID 1 MG TAB PO SCH (10:00)
[2021-10-20] MEDS: PANTOPRAZOLE 40 MG/10 ML VIAL INJ IV SCH ×2 (10:00→21:48)
[2021-10-20] MEDS: levoFLOXacin 250 MG TAB PO SCH (10:00)
[2021-10-20] MEDS: DOPamine 1600MCG/ML D5W 250 ML IV SCH (11:21)
[2021-10-20] MEDS: NOREPINEPHRINE 8 MG/250ML KIT 250 ML IV SCH (16:15)
[2021-10-20] MEDS: PROPOFOL 100 ML IV SCH (17:31)
[2021-10-20] MEDS: ATORVASTATIN 20 MG TAB PO SCH (21:48)
[2021-10-21] VITALS (41 sets, daily range): BP systolic 61–206; BP diastolic 55–111
[2021-10-21] MEDS: MIDAZOLAM DRIP 50 mg/50mL 50 ML IV SCH ×4 (03:59→22:09)
[2021-10-21] MEDS: fentaNYL Drip 2500mCg/250mlNS 250 ML IV SCH (04:01)
[2021-10-21 05:54] LABS: Calcium 7.8 mg/dL (8.5-10.1); Potassium 3.6 mmol/L (3.5-5.1)
[2021-10-21] MEDS: CALCIUM ACETATE 667 MG CAP NG SCH ×3 (06:06→22:08)
[2021-10-21] MEDS: SUCRALFATE 1 GM/10 ML ORAL SUSP PO SCH ×4 (06:06→22:08)
[2021-10-21] MEDS: InsuLIN REG 1unit/0.01ml Soln (100units/ml) SC SCH ×4 (06:51→22:00)
[2021-10-21] MEDS: ACCU-CHEK COMFORT CURVE STRIP VI SCH ×4 (06:51→22:08)
[2021-10-21 08:37] LABS: Basophils # (auto) 0.1 10 ^3/uL (0-0.2); Basophils % (auto) 1.1 % (0.0-2.0); Eosinophils # (auto) 0.2 10 ^3/uL (0-0.8); Eosinophils % (auto) 2.8 % (0.0-7.0); Hematocrit 29.8 % (36.0-46.0); Hemoglobin 9.7 g/dL (12.2-16.2); Lymphocytes # (auto) 1.2 10 ^3/uL (0.4-5.4); Mean Corpuscular Hemoglobin 27.4 pg (28.0-32.0); Mean Corpuscular Hgb Conc. 32.6 g/dL (32.0-36.0); Monocytes # (auto) 0.6 10 ^3/uL (0-1.3); Neutrophils # (auto) 6.7 10 ^3/uL (1.6-8.6); Neutrophils % (auto) 75.1 % (37.0-80.0); Red Blood Cells 3.54 10^6/uL (4.0-5.20); Red Cell Distribution Width 15.5 % (11.8-14.3); White Blood Cell 8.9 10^3/uL (4.4-10.8)
[2021-10-21 09:08] LABS: INR 1.21 (0.9-1.15); Partial Thromboplastin Time 32.3 sec (23.6-33.0)
[2021-10-21] MEDS ORDERED: LIDOCAINE 2%HCL (LOCAL ANESTH.) INJ 20ML MDV ONE (10:08)
[2021-10-21] MEDS ORDERED: HEPARIN SODIUM (PORCINE) 5000 UNITS/ML 1ML VIAL ONE (10:57)
[2021-10-21] MEDS: NOREPINEPHRINE 8 MG/250ML KIT 250 ML IV SCH (16:15)
[2021-10-21] MEDS: DOPamine 1600MCG/ML D5W 250 ML IV SCH (17:39)
[2021-10-21] MEDS: FOLIC ACID 1 MG TAB PO SCH (17:40)
[2021-10-21] MEDS: PANTOPRAZOLE 40 MG/10 ML VIAL INJ IV SCH ×2 (17:40→22:08)
[2021-10-21] MEDS: FUROSEMIDE 100 MG/10ML VIAL IV SCH (17:40)
[2021-10-21] MEDS: CYANOCOBALAMIN 500 MCG TAB PO SCH (17:41)
[2021-10-21] MEDS: ENOXAPARIN SOD 30 MG/0.3 ML SYRINGE SC SCH (17:41)
[2021-10-21] MEDS: PROPOFOL 100 ML IV SCH (19:00)
[2021-10-21] MEDS: ATORVASTATIN 20 MG TAB PO SCH (22:08)
[2021-10-22] VITALS (72 sets, daily range): BP systolic 83–203; BP diastolic 53–121
[2021-10-22] MEDS: MIDAZOLAM DRIP 50 mg/50mL 50 ML IV SCH ×6 (01:09→22:38)
[2021-10-22] MEDS: fentaNYL Drip 2500mCg/250mlNS 250 ML IV SCH ×2 (03:19→14:59)
[2021-10-22] MEDS: DOPamine 1600MCG/ML D5W 250 ML IV SCH (05:42)
[2021-10-22] MEDS: CALCIUM ACETATE 667 MG CAP NG SCH ×3 (05:42→22:35)
[2021-10-22 05:57] LABS: BUN/Creatinine Ratio 13.3; Calcium 7.9 mg/dL (8.5-10.1); Potassium 3.7 mmol/L (3.5-5.1)
[2021-10-22] MEDS: SUCRALFATE 1 GM/10 ML ORAL SUSP PO SCH ×4 (06:05→22:35)
[2021-10-22] MEDS: InsuLIN REG 1unit/0.01ml Soln (100units/ml) SC SCH ×4 (06:05→22:00)
[2021-10-22] MEDS: ACCU-CHEK COMFORT CURVE STRIP VI SCH ×4 (06:05→22:00)
[2021-10-22] MEDS: CYANOCOBALAMIN 500 MCG TAB PO SCH (09:03)
[2021-10-22] MEDS: FOLIC ACID 1 MG TAB PO SCH (09:04)
[2021-10-22] MEDS: levoFLOXacin 250 MG TAB PO SCH (09:05)
[2021-10-22] MEDS: FUROSEMIDE 100 MG/10ML VIAL IV SCH (09:05)
[2021-10-22] MEDS: PANTOPRAZOLE 40 MG/10 ML VIAL INJ IV SCH ×2 (09:05→22:35)
[2021-10-22] MEDS: ENOXAPARIN SOD 30 MG/0.3 ML SYRINGE SC SCH (09:07)
[2021-10-22] MEDS: PROPOFOL 100 ML IV SCH (19:00)
[2021-10-22] MEDS: NOREPINEPHRINE 8 MG/250ML KIT 250 ML IV SCH (19:00)
[2021-10-22] MEDS: ATORVASTATIN 20 MG TAB PO SCH (22:35)
[2021-10-23] VITALS (68 sets, daily range): BP systolic 81–141; BP diastolic 57–96
[2021-10-23] MEDS: MIDAZOLAM DRIP 50 mg/50mL 50 ML IV SCH ×6 (01:48→22:13)
[2021-10-23] MEDS: fentaNYL Drip 2500mCg/250mlNS 250 ML IV SCH ×2 (02:59→16:26)
[2021-10-23] MEDS: DOPamine 1600MCG/ML D5W 250 ML IV SCH (04:00)
[2021-10-23] MEDS: InsuLIN REG 1unit/0.01ml Soln (100units/ml) SC SCH ×4 (05:36→22:00)
[2021-10-23] MEDS: SUCRALFATE 1 GM/10 ML ORAL SUSP PO SCH ×4 (05:36→17:38)
[2021-10-23] MEDS: CALCIUM ACETATE 667 MG CAP NG SCH ×3 (05:36→22:15)
[2021-10-23] MEDS: ACCU-CHEK COMFORT CURVE STRIP VI SCH ×4 (05:37→22:16)
[2021-10-23] MEDS: FOLIC ACID 1 MG TAB PO SCH (09:45)
[2021-10-23] MEDS: FUROSEMIDE 100 MG/10ML VIAL IV SCH (09:45)
[2021-10-23] MEDS: CYANOCOBALAMIN 500 MCG TAB PO SCH (09:46)
[2021-10-23] MEDS: ENOXAPARIN SOD 30 MG/0.3 ML SYRINGE SC SCH (09:46)
[2021-10-23] MEDS: PANTOPRAZOLE 40 MG/10 ML VIAL INJ IV SCH ×2 (10:00→22:13)
[2021-10-23] MEDS: PROPOFOL 100 ML IV SCH (19:00)
[2021-10-23] MEDS: NOREPINEPHRINE 8 MG/250ML KIT 250 ML IV SCH (19:00)
[2021-10-23] MEDS: ATORVASTATIN 20 MG TAB PO SCH (22:15)
[2021-10-24] VITALS (80 sets, daily range): BP systolic 85–154; BP diastolic 53–94
[2021-10-24] MEDS: DOPamine 1600MCG/ML D5W 250 ML IV SCH (01:33)
[2021-10-24] MEDS: MIDAZOLAM DRIP 50 mg/50mL 50 ML IV SCH (01:43)
[2021-10-24] MEDS: fentaNYL Drip 2500mCg/250mlNS 250 ML IV SCH (03:31)
[2021-10-24 05:36] LABS: Basophils # (auto) 0.1 10 ^3/uL (0-0.2); Basophils % (auto) 0.6 % (0.0-2.0); Eosinophils # (auto) 0.4 10 ^3/uL (0-0.8); Eosinophils % (auto) 4.3 % (0.0-7.0); Hematocrit 27.4 % (36.0-46.0); Hemoglobin 9.3 g/dL (12.2-16.2); Lymphocytes % (auto) 9.7 % (10.0-50.0); Mean Corpuscular Hemoglobin 27.9 pg (28.0-32.0); Mean Corpuscular Hgb Conc. 33.8 g/dL (32.0-36.0); Mean Corpuscular Volume 82.7 fL (80.0-100.0); Monocytes # (auto) 0.4 10 ^3/uL (0-1.3); Monocytes % (auto) 3.7 % (0.0-12.0); Neutrophils # (auto) 8.5 10 ^3/uL (1.6-8.6); Neutrophils % (auto) 81.7 % (37.0-80.0); Red Blood Cells 3.32 10^6/uL (4.0-5.20); Red Cell Distribution Width 15.4 % (11.8-14.3); White Blood Cell 10.4 10^3/uL (4.4-10.8)
[2021-10-24] MEDS: CALCIUM ACETATE 667 MG CAP NG SCH ×3 (05:39→23:14)
[2021-10-24] MEDS: SUCRALFATE 1 GM/10 ML ORAL SUSP PO SCH ×4 (05:40→23:14)
[2021-10-24] MEDS: InsuLIN REG 1unit/0.01ml Soln (100units/ml) SC SCH ×4 (05:40→22:00)
[2021-10-24] MEDS: ACCU-CHEK COMFORT CURVE STRIP VI SCH ×4 (05:40→23:15)
[2021-10-24 05:41] LABS: Potassium 3.9 mmol/L (3.5-5.1)
[2021-10-24 05:49] LABS: Albumin 1.7 g/dL (3.4-5.0); BUN/Creatinine Ratio 12.3; Bilirubin, Total 0.5 mg/dL (0.2-1.0); Calcium 8.1 mg/dL (8.5-10.1); Magnesium 2.2 mg/dL (1.6-2.6); Phosphorus 5.1 mg/dL (2.5-4.90); Total Protein 4.8 g/dL (6.4-8.2)
[2021-10-24] MEDS: PANTOPRAZOLE 40 MG/10 ML VIAL INJ IV SCH ×2 (09:23→23:14)
[2021-10-24] MEDS: FUROSEMIDE 100 MG/10ML VIAL IV SCH (09:23)
[2021-10-24] MEDS: ENOXAPARIN SOD 30 MG/0.3 ML SYRINGE SC SCH (09:24)
[2021-10-24] MEDS: CYANOCOBALAMIN 500 MCG TAB PO SCH (09:24)
[2021-10-24] MEDS: levoFLOXacin 250 MG TAB PO SCH (09:24)
[2021-10-24] MEDS: FOLIC ACID 1 MG TAB PO SCH (09:24)
[2021-10-24] MEDS ORDERED: PANTOPRAZOLE 40 MG/10 ML VIAL INJ IV ONE (10:00)
[2021-10-24] MEDS ORDERED: FUROSEMIDE 100 MG/10ML VIAL IV ONE (10:00)
[2021-10-24] MEDS: NOREPINEPHRINE 8 MG/250ML KIT 250 ML IV SCH (16:15)
[2021-10-24] MEDS: PROPOFOL 100 ML IV SCH (17:45)
[2021-10-24] MEDS: ATORVASTATIN 20 MG TAB PO SCH (23:14)
[2021-10-25] VITALS (55 sets, daily range): BP systolic 83–132; BP diastolic 56–95
[2021-10-25 04:36] LABS: Basophils # (auto) 0.1 10 ^3/uL (0-0.2); Basophils % (auto) 0.5 % (0.0-2.0); Eosinophils # (auto) 0.4 10 ^3/uL (0-0.8); Eosinophils % (auto) 3.2 % (0.0-7.0); Hematocrit 28.7 % (36.0-46.0); Hemoglobin 9.6 g/dL (12.2-16.2); Lymphocytes % (auto) 6.9 % (10.0-50.0); Mean Corpuscular Hemoglobin 27.9 pg (28.0-32.0); Mean Corpuscular Hgb Conc. 33.4 g/dL (32.0-36.0); Mean Corpuscular Volume 83.5 fL (80.0-100.0); Monocytes # (auto) 0.5 10 ^3/uL (0-1.3); Monocytes % (auto) 3.5 % (0.0-12.0); Neutrophils # (auto) 11.9 10 ^3/uL (1.6-8.6); Neutrophils % (auto) 85.9 % (37.0-80.0); Nucleated Red Blood Cells % 0.1 %; Red Blood Cells 3.44 10^6/uL (4.0-5.20); Red Cell Distribution Width 15.4 % (11.8-14.3); White Blood Cell 13.8 10^3/uL (4.4-10.8)
[2021-10-25 04:56] LABS: Albumin 1.7 g/dL (3.4-5.0); BUN/Creatinine Ratio 11.7; Calcium 8.7 mg/dL (8.5-10.1); Potassium 4.2 mmol/L (3.5-5.1)
[2021-10-25 04:59] LABS: Bilirubin, Total 0.7 mg/dL (0.2-1.0)
[2021-10-25] MEDS: CALCIUM ACETATE 667 MG CAP NG SCH ×3 (05:55→21:37)
[2021-10-25] MEDS: SUCRALFATE 1 GM/10 ML ORAL SUSP PO SCH ×4 (05:55→21:37)
[2021-10-25] MEDS: DEXTROSE (50%) 50ML SYRG IV PRN (05:56)
[2021-10-25] MEDS: InsuLIN REG 1unit/0.01ml Soln (100units/ml) SC SCH ×4 (05:58→21:38)
[2021-10-25] MEDS: ACCU-CHEK COMFORT CURVE STRIP VI SCH ×4 (05:59→21:39)
[2021-10-25] MEDS: D5W/SOD CHLO 0.9% 1,000 ML IV SCH (09:00)
[2021-10-25] MEDS: FOLIC ACID 1 MG TAB PO SCH (09:16)
[2021-10-25] MEDS: CYANOCOBALAMIN 500 MCG TAB PO SCH (09:16)
[2021-10-25] MEDS: PANTOPRAZOLE 40 MG/10 ML VIAL INJ IV SCH ×2 (09:17→21:37)
[2021-10-25] MEDS: FUROSEMIDE 100 MG/10ML VIAL IV SCH (09:17)
[2021-10-25] MEDS: ENOXAPARIN SOD 30 MG/0.3 ML SYRINGE SC SCH (09:18)
[2021-10-25] MEDS ORDERED: Nepro With Carb Steady 1 Liter Bottle GT SCH (12:30)
[2021-10-25] MEDS: MIDAZOLAM DRIP 50 mg/50mL 50 ML IV SCH (16:15)
[2021-10-25] MEDS: NOREPINEPHRINE 8 MG/250ML KIT 250 ML IV SCH (16:15)
[2021-10-25] MEDS: PROPOFOL 100 ML IV SCH (17:45)
[2021-10-25] MEDS: ATORVASTATIN 20 MG TAB PO SCH (21:38)
[2021-10-26] VITALS (29 sets, daily range): BP systolic 90–154; BP diastolic 58–90
[2021-10-26] MEDS: DOPamine 1600MCG/ML D5W 250 ML IV SCH ×3 (01:32→18:12)
[2021-10-26] MEDS: fentaNYL Drip 2500mCg/250mlNS 250 ML IV SCH (02:45)
[2021-10-26 03:50] LABS: Basophils # (auto) 0.1 10 ^3/uL (0-0.2); Basophils % (auto) 0.4 % (0.0-2.0); Eosinophils # (auto) 0.3 10 ^3/uL (0-0.8); Eosinophils % (auto) 1.8 % (0.0-7.0); Hematocrit 28.5 % (36.0-46.0); Hemoglobin 9.2 g/dL (12.2-16.2); Lymphocytes # (auto) 0.8 10 ^3/uL (0.4-5.4); Lymphocytes % (auto) 4.8 % (10.0-50.0); Mean Corpuscular Hemoglobin 27.1 pg (28.0-32.0); Mean Corpuscular Hgb Conc. 32.3 g/dL (32.0-36.0); Mean Corpuscular Volume 83.7 fL (80.0-100.0); Monocytes # (auto) 0.5 10 ^3/uL (0-1.3); Monocytes % (auto) 3.1 % (0.0-12.0); Neutrophils # (auto) 15.7 10 ^3/uL (1.6-8.6); Neutrophils % (auto) 89.9 % (37.0-80.0); Red Cell Distribution Width 15.2 % (11.8-14.3); White Blood Cell 17.4 10^3/uL (4.4-10.8)
[2021-10-26 04:06] LABS: Albumin 1.6 g/dL (3.4-5.0); Calcium 8.4 mg/dL (8.5-10.1)
[2021-10-26 04:10] LABS: BUN/Creatinine Ratio 10.4; Bilirubin, Total 0.9 mg/dL (0.2-1.0)
[2021-10-26] MEDS: D5W/SOD CHLO 0.9% 1,000 ML IV SCH (05:45)
[2021-10-26] MEDS: CALCIUM ACETATE 667 MG CAP NG SCH ×3 (06:00→21:24)
[2021-10-26] MEDS: ACCU-CHEK COMFORT CURVE STRIP VI SCH ×4 (06:15→21:50)
[2021-10-26] MEDS: SUCRALFATE 1 GM/10 ML ORAL SUSP PO SCH ×4 (06:15→21:23)
[2021-10-26] MEDS: InsuLIN REG 1unit/0.01ml Soln (100units/ml) SC SCH ×4 (06:15→21:51)
[2021-10-26] MEDS ORDERED: VANCOMYCIN PER PHARMACY 0 MG IV SCH (08:30)
[2021-10-26] MEDS ORDERED: VANCOMYCIN 1GM/250ML 250 ML IV ONE (09:15)
[2021-10-26] MEDS ORDERED: PIPERACILLIN-TAZOB 2.25GM 50 ML IV SCH (10:00)
[2021-10-26] MEDS: FUROSEMIDE 100 MG/10ML VIAL IV SCH (10:12)
[2021-10-26] MEDS: FOLIC ACID 1 MG TAB PO SCH (10:13)
[2021-10-26] MEDS: PANTOPRAZOLE 40 MG/10 ML VIAL INJ IV SCH ×2 (10:13→21:23)
[2021-10-26] MEDS: CYANOCOBALAMIN 500 MCG TAB PO SCH (10:13)
[2021-10-26] MEDS: ENOXAPARIN SOD 30 MG/0.3 ML SYRINGE SC SCH (10:14)
[2021-10-26] MEDS: PIPERACILLIN-TAZOB 2.25GM 50 ML IV SCH ×2 (14:31→21:22)
[2021-10-26] MEDS: MIDAZOLAM DRIP 50 mg/50mL 50 ML IV SCH (16:15)
[2021-10-26] MEDS: NOREPINEPHRINE 8 MG/250ML KIT 250 ML IV SCH (16:15)
[2021-10-26] MEDS: PROPOFOL 100 ML IV SCH (17:45)
[2021-10-26] MEDS: ATORVASTATIN 20 MG TAB PO SCH (21:24)
[2021-10-27] VITALS (30 sets, daily range): BP systolic 59–185; BP diastolic 37–102
[2021-10-27] MEDS: fentaNYL Drip 2500mCg/250mlNS 250 ML IV SCH (02:45)
[2021-10-27] MEDS: D5W/SOD CHLO 0.9% 1,000 ML IV SCH (04:00)
[2021-10-27 04:23] LABS: Basophils # (auto) 0.1 10 ^3/uL (0-0.2); Basophils % (auto) 0.3 % (0.0-2.0); Eosinophils # (auto) 0.3 10 ^3/uL (0-0.8); Eosinophils % (auto) 1.7 % (0.0-7.0); Hematocrit 26.6 % (36.0-46.0); Hemoglobin 8.8 g/dL (12.2-16.2); Lymphocytes # (auto) 0.7 10 ^3/uL (0.4-5.4); Lymphocytes % (auto) 4.2 % (10.0-50.0); Mean Corpuscular Hemoglobin 27.3 pg (28.0-32.0); Mean Corpuscular Volume 82.7 fL (80.0-100.0); Monocytes # (auto) 0.7 10 ^3/uL (0-1.3); Monocytes % (auto) 4.1 % (0.0-12.0); Neutrophils # (auto) 15.5 10 ^3/uL (1.6-8.6); Neutrophils % (auto) 89.7 % (37.0-80.0); Red Blood Cells 3.21 10^6/uL (4.0-5.20); Red Cell Distribution Width 15.1 % (11.8-14.3); White Blood Cell 17.3 10^3/uL (4.4-10.8)
[2021-10-27 05:06] LABS: Albumin 1.5 g/dL (3.4-5.0); BUN/Creatinine Ratio 11.2; Calcium 7.7 mg/dL (8.5-10.1); Potassium 3.9 mmol/L (3.5-5.1)
[2021-10-27] MEDS: ACCU-CHEK COMFORT CURVE STRIP VI SCH ×4 (06:00→22:00)
[2021-10-27] MEDS: InsuLIN REG 1unit/0.01ml Soln (100units/ml) SC SCH ×4 (06:00→22:00)
[2021-10-27] MEDS: CALCIUM ACETATE 667 MG CAP NG SCH ×3 (06:00→22:00)
[2021-10-27] MEDS: PIPERACILLIN-TAZOB 2.25GM 50 ML IV SCH ×3 (06:13→22:30)
[2021-10-27] MEDS: SUCRALFATE 1 GM/10 ML ORAL SUSP PO SCH ×4 (06:27→22:00)
[2021-10-27] MEDS ORDERED: VANCOMYCIN 1GM/250ML 250 ML IV ONE (09:15)
[2021-10-27] MEDS: PANTOPRAZOLE 40 MG/10 ML VIAL INJ IV SCH ×2 (09:48→22:00)
[2021-10-27] MEDS: FOLIC ACID 1 MG TAB PO SCH (09:49)
[2021-10-27] MEDS: FUROSEMIDE 100 MG/10ML VIAL IV SCH (09:49)
[2021-10-27] MEDS: CYANOCOBALAMIN 500 MCG TAB PO SCH (09:50)
[2021-10-27] MEDS: ENOXAPARIN SOD 30 MG/0.3 ML SYRINGE SC SCH (09:50)
[2021-10-27] MEDS: MIDAZOLAM DRIP 50 mg/50mL 50 ML IV SCH (16:15)
[2021-10-27] MEDS: NOREPINEPHRINE 8 MG/250ML KIT 250 ML IV SCH (16:15)
[2021-10-27] MEDS: DOPamine 1600MCG/ML D5W 250 ML IV SCH (17:01)
[2021-10-27] MEDS: PROPOFOL 100 ML IV SCH (17:45)
[2021-10-27] MEDS ORDERED: FLUCONAZOLE 200MG/100ML 100 ML IV ONE (18:00)
[2021-10-27] MEDS: ATORVASTATIN 20 MG TAB PO SCH (22:00)
[2021-10-28] VITALS (32 sets, daily range): BP systolic 115–255; BP diastolic 77–123
[2021-10-28] MEDS: fentaNYL Drip 2500mCg/250mlNS 250 ML IV SCH (02:45)
[2021-10-28 04:14] LABS: Albumin 1.5 g/dL (3.4-5.0); BUN/Creatinine Ratio 10.8; Calcium 7.5 mg/dL (8.5-10.1); Potassium 3.4 mmol/L (3.5-5.1)
[2021-10-28 04:20] LABS: Bilirubin, Total 1.2 mg/dL (0.2-1.0); Total Protein 4.9 g/dL (6.4-8.2)
[2021-10-28] MEDS: CALCIUM ACETATE 667 MG CAP NG SCH ×3 (06:00→21:48)
[2021-10-28] MEDS: hydrALAZINE HCL 10 MG TAB PO PRN ×2 (06:30→14:26)
[2021-10-28] MEDS: PIPERACILLIN-TAZOB 2.25GM 50 ML IV SCH ×3 (06:30→21:48)
[2021-10-28] MEDS: InsuLIN REG 1unit/0.01ml Soln (100units/ml) SC SCH ×4 (07:00→22:00)
[2021-10-28] MEDS: SUCRALFATE 1 GM/10 ML ORAL SUSP PO SCH ×3 (07:14→21:48)
[2021-10-28] MEDS: ACCU-CHEK COMFORT CURVE STRIP VI SCH ×4 (07:14→21:48)
[2021-10-28] MEDS: FLUCONAZOLE 200MG/100ML 100 ML IV SCH (09:15)
[2021-10-28] MEDS: FUROSEMIDE 100 MG/10ML VIAL IV SCH (09:16)
[2021-10-28] MEDS: CYANOCOBALAMIN 500 MCG TAB PO SCH (09:16)
[2021-10-28] MEDS: PANTOPRAZOLE 40 MG/10 ML VIAL INJ IV SCH ×2 (09:16→21:48)
[2021-10-28] MEDS: ENOXAPARIN SOD 30 MG/0.3 ML SYRINGE SC SCH (09:17)
[2021-10-28] MEDS: FOLIC ACID 1 MG TAB PO SCH (09:17)
[2021-10-28] MEDS: DOPamine 1600MCG/ML D5W 250 ML IV SCH (12:11)
[2021-10-28] MEDS: MIDAZOLAM DRIP 50 mg/50mL 50 ML IV SCH (15:54)
[2021-10-28] MEDS: NOREPINEPHRINE 8 MG/250ML KIT 250 ML IV SCH (15:54)
[2021-10-28] MEDS: PROPOFOL 100 ML IV SCH (17:42)
[2021-10-28] MEDS: ATORVASTATIN 20 MG TAB PO SCH (21:49)
[2021-10-29] VITALS (29 sets, daily range): BP systolic 71–158; BP diastolic 11–102
[2021-10-29] MEDS: PIPERACILLIN-TAZOB 2.25GM 50 ML IV SCH ×3 (06:18→22:30)
[2021-10-29] MEDS: InsuLIN REG 1unit/0.01ml Soln (100units/ml) SC SCH ×4 (06:18→22:00)
[2021-10-29] MEDS: CALCIUM ACETATE 667 MG CAP NG SCH ×3 (06:19→22:00)
[2021-10-29] MEDS: ACCU-CHEK COMFORT CURVE STRIP VI SCH ×4 (06:19→22:00)
[2021-10-29 06:50] LABS: Basophils # (auto) 0.1 10 ^3/uL (0-0.2); Basophils % (auto) 0.4 % (0.0-2.0); Eosinophils # (auto) 0.2 10 ^3/uL (0-0.8); Eosinophils % (auto) 1.6 % (0.0-7.0); Hematocrit 25.4 % (36.0-46.0); Hemoglobin 8.5 g/dL (12.2-16.2); Lymphocytes # (auto) 0.9 10 ^3/uL (0.4-5.4); Lymphocytes % (auto) 6.4 % (10.0-50.0); Mean Corpuscular Hemoglobin 27.3 pg (28.0-32.0); Mean Corpuscular Hgb Conc. 33.5 g/dL (32.0-36.0); Mean Corpuscular Volume 81.7 fL (80.0-100.0); Monocytes # (auto) 0.6 10 ^3/uL (0-1.3); Monocytes % (auto) 4.5 % (0.0-12.0); Neutrophils # (auto) 12.1 10 ^3/uL (1.6-8.6); Neutrophils % (auto) 87.1 % (37.0-80.0); Red Blood Cells 3.11 10^6/uL (4.0-5.20); Red Cell Distribution Width 15.1 % (11.8-14.3); White Blood Cell 13.9 10^3/uL (4.4-10.8)
[2021-10-29] MEDS ORDERED: SODIUM CHL 0.9% 1000 ML BAG XX ONE (07:00)
[2021-10-29 07:23] LABS: BUN/Creatinine Ratio 10.2; Calcium 7.9 mg/dL (8.5-10.1)
[2021-10-29 07:35] LABS: Potassium 2.7 mmol/L (3.5-5.1)
[2021-10-29] MEDS ORDERED: POTASSIUM CHL 20MEQ/50ML 50 ML IV ONE ×2 (09:15)
[2021-10-29] MEDS: ENOXAPARIN SOD 30 MG/0.3 ML SYRINGE SC SCH (09:17)
[2021-10-29] MEDS: PANTOPRAZOLE 40 MG/10 ML VIAL INJ IV SCH ×2 (09:17→22:00)
[2021-10-29] MEDS: FLUCONAZOLE 200MG/100ML 100 ML IV SCH (09:17)
[2021-10-29] MEDS: CYANOCOBALAMIN 500 MCG TAB PO SCH (09:17)
[2021-10-29] MEDS: FOLIC ACID 1 MG TAB PO SCH (09:17)
[2021-10-29] MEDS: FUROSEMIDE 100 MG/10ML VIAL IV SCH (09:18)
[2021-10-29] MEDS: SUCRALFATE 1 GM/10 ML ORAL SUSP PO SCH ×2 (09:59→22:00)
[2021-10-29] MEDS: NOREPINEPHRINE 8 MG/250ML KIT 250 ML IV SCH (10:46)
[2021-10-29] MEDS: ATORVASTATIN 20 MG TAB PO SCH (22:00)
[2021-10-30] VITALS (32 sets, daily range): BP systolic 46–213; BP diastolic 25–139
[2021-10-30 04:47] LABS: Basophils # (auto) 0.1 10 ^3/uL (0-0.2); Hemoglobin 8.5 g/dL (12.2-16.2)
[2021-10-30 04:50] LABS: Basophils % (auto) 0.9 % (0.0-2.0); Eosinophils # (auto) 0.2 10 ^3/uL (0-0.8); Eosinophils % (auto) 2.3 % (0.0-7.0); Hematocrit 25.6 % (36.0-46.0); Lymphocytes % (auto) 9.6 % (10.0-50.0); Mean Corpuscular Hemoglobin 27.2 pg (28.0-32.0); Mean Corpuscular Hgb Conc. 33.1 g/dL (32.0-36.0); Mean Corpuscular Volume 82.3 fL (80.0-100.0); Monocytes # (auto) 0.6 10 ^3/uL (0-1.3); Monocytes % (auto) 5.5 % (0.0-12.0); Neutrophils # (auto) 8.3 10 ^3/uL (1.6-8.6); Neutrophils % (auto) 81.7 % (37.0-80.0); Nucleated Red Blood Cells % 0.2 %; Red Blood Cells 3.11 10^6/uL (4.0-5.20); White Blood Cell 10.2 10^3/uL (4.4-10.8)
[2021-10-30 05:05] LABS: BUN/Creatinine Ratio 8.7; Calcium 8.2 mg/dL (8.5-10.1)
[2021-10-30 05:44] LABS: Potassium 2.9 mmol/L (3.5-5.1)
[2021-10-30] MEDS: CALCIUM ACETATE 667 MG CAP NG SCH ×3 (06:25→22:00)
[2021-10-30] MEDS: PIPERACILLIN-TAZOB 2.25GM 50 ML IV SCH ×3 (06:25→22:30)
[2021-10-30] MEDS: ACCU-CHEK COMFORT CURVE STRIP VI SCH ×3 (06:25→17:00)
[2021-10-30] MEDS: InsuLIN REG 1unit/0.01ml Soln (100units/ml) SC SCH ×3 (07:00→22:00)
[2021-10-30] MEDS: PANTOPRAZOLE 40 MG/10 ML VIAL INJ IV SCH ×2 (09:12→22:00)
[2021-10-30] MEDS: IPRATROPIUM BROM 0.5 MG/2.5ML INH SOL NEB PRN (09:12)
[2021-10-30] MEDS: FUROSEMIDE 100 MG/10ML VIAL IV SCH (09:14)
[2021-10-30] MEDS: FOLIC ACID 1 MG TAB PO SCH (09:16)
[2021-10-30] MEDS: CYANOCOBALAMIN 500 MCG TAB PO SCH (09:16)
[2021-10-30] MEDS: FLUCONAZOLE 200MG/100ML 100 ML IV SCH (09:17)
[2021-10-30] MEDS: SUCRALFATE 1 GM/10 ML ORAL SUSP PO SCH ×2 (09:17→22:00)
[2021-10-30] MEDS: ENOXAPARIN SOD 30 MG/0.3 ML SYRINGE SC SCH (09:17)
[2021-10-30] MEDS: POTASSIUM CHL 20MEQ/50ML 50 ML IV SCH ×2 (09:58→13:28)
[2021-10-30] MEDS: MAGNESIUM SULFATE 1GM/100ML 100 ML IV SCH ×2 (11:00→13:28)
[2021-10-30] MEDS: fentaNYL Drip 2500mCg/250mlNS 250 ML IV SCH (14:19)
[2021-10-30] MEDS ORDERED: VANCOMYCIN 500 MG in D5W 5% 100 ML IV ONE (17:00)
[2021-10-30] MEDS: ATORVASTATIN 20 MG TAB PO SCH (22:00)
[2021-10-31] VITALS (22 sets, daily range): BP systolic 85–176; BP diastolic 57–96
[2021-10-31 03:46] LABS: BUN/Creatinine Ratio 8.9; Calcium 8.1 mg/dL (8.5-10.1); Magnesium 1.8 mg/dL (1.6-2.6); Potassium 3.8 mmol/L (3.5-5.1)
[2021-10-31] MEDS: CALCIUM ACETATE 667 MG CAP NG SCH ×2 (06:00→14:00)
[2021-10-31] MEDS: PIPERACILLIN-TAZOB 2.25GM 50 ML IV SCH (06:51)
[2021-10-31] MEDS: InsuLIN REG 1unit/0.01ml Soln (100units/ml) SC SCH ×2 (06:52→11:30)
[2021-10-31] MEDS: ACCU-CHEK COMFORT CURVE STRIP VI SCH ×2 (07:00→11:30)
[2021-10-31] MEDS: FLUCONAZOLE 200MG/100ML 100 ML IV SCH (09:00)
[2021-10-31] MEDS: SUCRALFATE 1 GM/10 ML ORAL SUSP PO SCH (09:00)
[2021-10-31] MEDS: FOLIC ACID 1 MG TAB PO SCH (09:00)
[2021-10-31] MEDS: FUROSEMIDE 100 MG/10ML VIAL IV SCH (09:01)
[2021-10-31] MEDS: PANTOPRAZOLE 40 MG/10 ML VIAL INJ IV SCH (09:01)
[2021-10-31] MEDS: ENOXAPARIN SOD 30 MG/0.3 ML SYRINGE SC SCH (09:02)
[2021-10-31] MEDS: CYANOCOBALAMIN 500 MCG TAB PO SCH (09:02)
[2021-10-31] MEDS ORDERED: VANCOMYCIN 1GM/250ML 250 ML IV ONE (09:43)
[2021-10-31 09:52] LABS: Basophils # (auto) 0.1 10 ^3/uL (0-0.2); Eosinophils # (auto) 0.5 10 ^3/uL (0-0.8); Hemoglobin 8.1 g/dL (12.2-16.2); Lymphocytes # (auto) 1.2 10 ^3/uL (0.4-5.4); Monocytes # (auto) 0.6 10 ^3/uL (0-1.3); Neutrophils # (auto) 5.5 10 ^3/uL (1.6-8.6); White Blood Cell 7.8 10^3/uL (4.4-10.8)
[2021-10-31 09:54] LABS: Hematocrit 24.4 % (36.0-46.0); Lymphocytes % (auto) 15.5 % (10.0-50.0); Mean Corpuscular Hemoglobin 27.2 pg (28.0-32.0); Mean Corpuscular Hgb Conc. 33.3 g/dL (32.0-36.0); Mean Corpuscular Volume 81.6 fL (80.0-100.0); Monocytes % (auto) 7.3 % (0.0-12.0); Neutrophils % (auto) 70.2 % (37.0-80.0); Red Blood Cells 2.99 10^6/uL (4.0-5.20); Red Cell Distribution Width 14.9 % (11.8-14.3)
[2021-10-31] MEDS ORDERED: LORazepam 2MG/ML-1ML VIAL IV PRN (12:30)
[2021-10-31] MEDS ORDERED: MORPHINE SULFATE INJECTION 2 MG/ML SYRG IV PRN (12:30)
[2021-11-01 05:00] VITALS: BP 121/74
[2021-11-01 09:57] VITALS: BP 164/88
[2021-11-01 13:00] VITALS: BP 142/100
[2021-11-01 16:33] VITALS: BP 117/66
[2021-11-01 18:10] VITALS: BP 117/66
== END 2021-11-01 19:00 | disposition hospice, home (50) | DRG 870 ==
LOC: ER 08:43 → EDBD 08:43 → TELE 12:18 → TELE-WESTW 10-16 10:00 → TELE 10-16 11:15 → ICU WEST 10-18 16:23 → CATH ICU 10-26 07:36 → WEST WING 10-31 21:11
PROVIDERS: ADMIT Hospitalist; ATTEND Internal Medicine
PROC: 5A1955Z Respiratory Ventilation, Greater than 96 Consecutive Hours (ICD-10-PCS; 2021-10-08)
PROC: 0BH17EZ Insertion of Endotracheal Airway into Trachea, Via Natural or Artificial Opening (ICD-10-PCS; 2021-10-08)
PROC: 30233N1 Transfusion of Nonautologous Red Blood Cells into Peripheral Vein, Percutaneous Approach (ICD-10-PCS; 2021-10-09)
PROC: 30233K1 Transfusion of Nonautologous Frozen Plasma into Peripheral Vein, Percutaneous Approach (ICD-10-PCS; 2021-10-09)
PROC: 5A09357 Assistance with Respiratory Ventilation, Less than 24 Consecutive Hours, Continuous Positive Airway Pressure (ICD-10-PCS; 2021-10-16)
PROC: 5A1955Z Respiratory Ventilation, Greater than 96 Consecutive Hours (ICD-10-PCS; principal; 2021-10-17)
PROC: 0BH17EZ Insertion of Endotracheal Airway into Trachea, Via Natural or Artificial Opening (ICD-10-PCS; 2021-10-17)
PROC: 0JH63XZ Insertion of Tunneled Vascular Access Device into Chest Subcutaneous Tissue and Fascia, Percutaneous Approach (ICD-10-PCS; 2021-10-21)
PROC: 02H633Z Insertion of Infusion Device into Right Atrium, Percutaneous Approach (ICD-10-PCS; 2021-10-21)
PROC: B5181ZA Fluoroscopy of Superior Vena Cava using Low Osmolar Contrast, Guidance (ICD-10-PCS; 2021-10-21)
PROC: B548ZZA Ultrasonography of Superior Vena Cava, Guidance (ICD-10-PCS; 2021-10-21)
PROC: 5A1D70Z Performance of Urinary Filtration, Intermittent, Less than 6 Hours Per Day (ICD-10-PCS; 2021-10-29)
DX: A41.9 Sepsis, unspecified organism (principal); E43 Unspecified severe protein-calorie malnutrition; N17.0 Acute kidney failure with tubular necrosis; J96.01 Acute respiratory failure with hypoxia; I21.A1 Myocardial infarction type 2; N18.6 End stage renal disease; J18.9 Pneumonia, unspecified organism; I47.2 Ventricular tachycardia; N30.00 Acute cystitis without hematuria; I12.0 Hypertensive chronic kidney disease with stage 5 chronic kidney disease or end stage renal disease; J90 Pleural effusion, not elsewhere classified; R55 Syncope and collapse; I25.5 Ischemic cardiomyopathy; I25.10 Atherosclerotic heart disease of native coronary artery without angina pectoris; E87.6 Hypokalemia; Z66 Do not resuscitate; D63.8 Anemia in other chronic diseases classified elsewhere; E11.22 Type 2 diabetes mellitus with diabetic chronic kidney disease; H40.9 Unspecified glaucoma; E55.9 Vitamin D deficiency, unspecified; D63.1 Anemia in chronic kidney disease; E11.21 Type 2 diabetes mellitus with diabetic nephropathy; B95.8 Unspecified staphylococcus as the cause of diseases classified elsewhere; H54.8 Legal blindness, as defined in USA; J44.9 Chronic obstructive pulmonary disease, unspecified; Z20.822 Contact with and (suspected) exposure to COVID-19; Z68.22 Body mass index [BMI] 22.0-22.9, adult; Z51.5 Encounter for palliative care; Z99.2 Dependence on renal dialysis; Z79.4 Long term (current) use of insulin
CPT/HCPCS: 31500; 36415; 36556; 36558; 36600; 70450; 71045; 71250; 76775; 76942; 77001; 78582; 78707; 80048; 80053; 80061; 80202; 80307; 81001; 82270; 82306; 82570; 82607; 82746; 82805; 82962; 83036; 83540; 83550; 83735; 83880; 83970; 84100; 84156; 84300; 84443; 84484; 84550; 85025; 85379; 85610; 85730; 86803; 86850; 86900; 86901; 86920; 87040; 87070; 87077; 87081; 87086; 87088; 87186; 87205; 87340; 87426; 87493; 90935; 92610; 93005; 93306; 93886; 93970; 94002; 94003; 94640; 96361; 96365; 96372; 96375; 97163; 99152; 99153; 99291; A4618; C9113; G0378; J0330; J0636; J0696; J1450; J1642; J1815; J2001; J2250; J2543; J2704; J3490; J7042; J7060; P9047